=== PATIENT | male | born 1960 | race Caucasian/White ===

== ENCOUNTER 2019-04-12 09:03 | Emergency (ER) | payer OTHER ==
[2019-04-12] MEDS ORDERED: DIAZEPAM 10 MG/2 ML SYR IVP ONE (09:21)
[2019-04-12] MEDS ORDERED: KETOROLAC 15 MG/1 ML SDV IVP ONE (09:21)
[2019-04-12] MEDS ORDERED: DEXAMETHASONE 4 MG/ML VIAL IVP ONE (09:21)
--- NOTE | 2019-04-12 09:21 | EDPHY ---
H & P Stated Complaint: back pain Time Seen by Provider: 04/12/19 09:15 HPI/ROS: HPI: This is a 58-year-old male who presents with Chief Complaint: Low back pain Location: Lumbar back Quality: Pain and spasm Duration: 2 days Signs and Symptoms: No bleeding, no radiation, no numbness, no weakness, no tingling, no incontinence, + decreased range of motion, no swelling, + pain, no fever Timing: Worse this morning Severity: 09/04 Context: Patient has a history of L3-L4 and L4-L5 disc herniation diagnosed via MRI lumbar spine outpatient in 2016 presents via EMS with complaints of lumbar back strain that occurred approximately 2 days ago while performing yard work. Patient reports that he has been stiff with decreased flexion and extension for the last 2 days. He woke up this morning with increased, constant , radiating pain into his right hip and inability to transfer himself from the bed to standing without significant pain. Denies any change in bowel or bladder habits. He has had 3 lumbar epidural steroid injections in the past. It was recommended that he have discs fusions but patient prefers not to have surgical intervention if not absolutely necessary. In the past, he has been managed with the "shot of Toradol in the but and shot of steroid in the but with adequate relief of lumbar strain." Requesting referral to PCP and Neurosurgery as new to the area. Modifying Factors: None Comment: ROS: A comprehensive 10 system review of systems is otherwise negative aside from elements mentioned in the history of present illness. MEDICAL/SURGICAL/SOCIAL HISTORY: Medical history: Lumbar disc herniation, hyperlipidemia Surgical history: Denies Social history: , employed in healthcare administration, recently moved to the area. Nonsmoker. CONSTITUTIONAL: Appears uncomfortable, lying flat on his back on the ER stretcher, at bedside, awake and alert, no obvious distress HEENT: Atraumatic and normocephalic, PERRL, EOMI. Nares patent; no rhinorrhea; no nasal mucosal edema. Tympanic membranes clear. Oropharynx clear, no exudate and moist pink mucosa. Airway patent. No lymphadenopathy. No meningismus. Cardiovascular: Normal S1/S2, regular rate, regular rhythm, without murmur rub or gallop. PULMONARY/CHEST: Symmetrical and nontender. Clear to auscultation bilaterally. Good air movement. No accessory muscle usage. ABDOMEN: Soft, nondistended, nontender, no rebound, no guarding, no peritoneal signs, no masses or organomegaly. No CVAT. BACK: No midline tenderness, moderate right-sided reproducible lumbar paraspinous and levator muscle tenderness and spasm; deep tendon reflexes 2/2, moderate pain with right straight leg raise, mild pain with left straight leg raise, No foot drop. Achilles reflexes are equal bilaterally. EXTREMITIES: 2/2 pulses, strength 5/5, no deformities, no clubbing, no cyanosis or edema. NEUROLOGICAL: no focal neuro deficits. GCS 15. SKIN: Warm and dry, no erythema. no rash. Good capillary refill. Source: Patient, Family () Exam Limitations: No limitations - Personal History Current Tetanus Diphtheria and Acellular Pertussis (TDAP): Yes - Medical/Surgical History Hx Asthma: No Hx Chronic Respiratory Disease: No Hx Diabetes: No Hx Cardiac Disease: No Hx Renal Disease: No Hx Cirrhosis: No Hx Alcoholism: No Hx HIV/AIDS: No Hx Splenectomy or Spleen Trauma: No Other PMH: melanoma, back pain, hyperlipidemia, cerebral clot - Social History Smoking Status: Former smoker Constitutional: Initial Vital Signs Temperature (C) 36.6 C 04/12/19 09:08 Heart Rate 54 L 04/12/19 09:08 Respiratory Rate 18 04/12/19 09:08 Blood Pressure 166/84 H 04/12/19 09:08 O2 Sat (%) 99 04/12/19 09:08 O2 Delivery Mode Room Air Allergies/Adverse Reactions: No Known Allergies Allergy (Unverified 04/12/19 09:07) Home Medications: Medication Instructions Recorded Atorvastatin Calcium 04/12/19 Diazepam [Valium 5 MG (*)] 5 mg PO Q8 PRN #10 tab 04/12/19 methylPREDNISolone [Medrol Dose 1 each PO AD #1 ea 04/12/19 Alberto] oxyCODONE/APAP 5/325 [Percocet 1 - 2 tab PO Q4H PRN #12 tab 04/12/19 5/325 (*)] Medical Decision Making ED Course/Re-evaluation: Vital signs reviewed and show elevated blood pressure likely due to pain. Long discussion with patient as he has known disc herniations at 2 lumbar levels and prefers to follow up outpatient for MRI imaging and Neurosurgery consult. He requests medications in the emergency room. IV Decadron 10 mg, IV Toradol 30 mg and IV Valium 5 mg given 1100: Patient passed road test. Increased pain with getting from bed to standing position but asking to be discharged home. Given a prescription for Medrol Dosepak, Valium as needed for muscle spasms and Percocet as needed for severe pain. Patient was given referral to PCP and Neurosurgery No signs of neurovascular compromise/tenting of skin/compartment syndrome/ extremities and joints examined above and below area of concern and are neurovascularly intact/cauda equina syndrome/saddle anesthesia. This patient was seen under the supervision of my secondary supervising physician. I evaluated and cared for this patient with attending. Differential Diagnosis: Back pain including but not limited to muscular pain, herniated disc, spine fracture, intra-abdominal causes and urinary tract infection. - Data Points Medications Given: Discontinued Medications Dexamethasone (Decadron Injection) 10 mg IVP EDNOW ONE Stop: 04/12/19 09:22 Last Admin: 04/12/19 09:29 Dose: 10 mg Diazepam (Valium) 5 mg IVP EDNOW ONE Stop: 04/12/19 09:22 Last Admin: 04/12/19 09:30 Dose: 5 mg Ketorolac Tromethamine (Toradol) 30 mg IVP EDNOW ONE Stop: 04/12/19 09:22 Last Admin: 04/12/19 09:30 Dose: 30 mg Departure - Departure Disposition: Home, Routine, Self-Care Clinical Impression: Herniation of lumbar intervertebral disc with radiculopathy Strain of lumbar spine Qualifiers: Encounter type: initial encounter Qualified Code(s): S39.012A - Strain of muscle, fascia and tendon of lower back, initial encounter Condition: Good Instructions: Lumbar Disc Herniation (ED), Low Back Strain (ED) Additional Instructions: Take Medrol Dosepak as directed. Start taking steroid burst tomorrow. Take Tylenol 650 mg every 4 hours and/or Ibuprofen 600 mg every 8 hours with food as needed for pain. Use Percocet every 6 hours as needed for severe/break through pain. Do not use Tylenol and Percocet concomitantly. Use Valium every 8 hr as needed for muscle spasms. Follow up with PCP/neurosurgery in 5-7 days if symptoms persist at which time they will evaluate and recommend with you if conservative management versus MRI is indicated. Referrals: rIis Machuca MD [Medical Doctor] - As per Instructions Austin Porter MD [Medical Doctor] - As per Instructions Prescriptions: Diazepam [Valium 5 MG (*)] 5 mg PO Q8 PRN #10 tab PRN Reason: Spasms methylPREDNISolone [Medrol Dose Alberto] 1 each PO AD #1 ea oxyCODONE/APAP 5/325 [Percocet 5/325 (*)] 1 - 2 tab PO Q4H PRN #12 tab PRN Reason: Pain, Severe
[2019-04-12 11:04] VITALS: BP 154/80
== END 2019-04-12 11:03 | disposition home or self-care (01) ==
DX: M51.16 Intervertebral disc disorders with radiculopathy, lumbar region (principal); E78.5 Hyperlipidemia, unspecified; Z85.820 Personal history of malignant melanoma of skin; Z87.891 Personal history of nicotine dependence
CPT/HCPCS: 96374; J1100; J1885; J3360